=== PATIENT | female | born 1980 | race Hispanic/Latino ===

== ENCOUNTER 2021-04-20 12:53 | Emergency (ER) | payer OTHER, SELFPAY ==
--- NOTE | ~2021-04-20 | XR_ITS ---
EXAMINATION: XR knee RT min 4V DATE: 04/20/2021 13:14 INDICATION: Right knee pain TECHNIQUE: Four views of the right knee were obtained. COMPARISON: 04/25/2019 FINDINGS: Alignment is normal. No fracture or osteochondral lesion. Joint spaces are normal with no e rosions. There is a moderate size knee joint effusion. Soft tissues are unremarkable. IMPRESSION: 1. Moderate size knee joint effusion without acute osseous abnormality. Reviewed, dictated and finalized at location A.
[2021-04-20 12:54] VITALS: BP 126/68; PULSE 110; RESP 20; TEMP 37.2; O2SAT 99
[2021-04-20] MEDS: KETOROLAC (*BKC) 60 MG/2 ML VIAL IM (14:36)
--- NOTE | 2021-04-20 14:51 | ED.GENADULT ---
HPI - General Adult General Chief complaint: Extremity Injury, Lower Stated complaint: right knee pain Time Seen by Provider: 04/20/21 13:46 Source: patient, RN notes reviewed and old records reviewed Mode of arrival: ambulatory Limitations: no limitations History of Present Illness HPI narrative: Patient is a 40-year-old female who presents with tender right knee noting that she woke with swollen right knee noted as an aching pain patient denies injury or trauma has had problems with this knee in the past was seen by orthopedist had x-rays and MRI which did not reveal a cause patient on arrival to emergency department does not appear distressed presents with knee immobilizer patient is takes ibuprofen for pain nothing else patient on arrival is noted does not appear uncomfortable or distressed Related Data Home Medications Medication Instructions Recorded Confirmed docosahexaenoic acid 200 mg capsule mg PO 12/19/19 fenugreek seed extract 500 mg mg PO 12/19/19 capsule multivitamin with iron 1 tablet PO DAILY 12/19/19 Allergies Allergy/AdvReac Type Severity Reaction Status Date / Time soybean Allergy Mild rash Verified 04/20/21 12:54 gluten Allergy Unknown Other Verified 04/20/21 12:54 house dust Allergy Unknown Other Verified 04/20/21 12:54 pollen extracts Allergy Unknown Unknown Verified 04/20/21 12:54 cat hair Allergy Unknown Rash Uncoded 12/19/19 10:05 Review of Systems Review of Systems: All systems reviewed & are unremarkable except as noted in HPI and below PMFSH Past Medical History Medical History Celiac disease Polycystic ovarian syndrome Surgical History Surgical History H/O hernia repair History of section Family History Family History (Updated 04/25/19 @ 09:40 by DOCTOR UNKNOWN) Other Asthma Cerebrovascular accident Diabetes mellitus Family history of allergic disorder Family history of arthritis Family history of kidney disease Hypertension Social History Social History Smoking status: Never smoker Alcohol intake: never Gender identity (if verbalized by the patient): Female Exam Narrative: Exam Narrative: GENERAL: Well-appearing, well-nourished, and in no acute distress. HEAD: Normocephalic, atraumatic. EYES: PERRLA and EOMI. ENT: Nares clear, no rhinorrhea or epistaxis. Mucous membranes moist. EXTREMITIES: Swelling tenderness of the right knee no deformity SKIN: Warm, dry, no rash. NEURO: No focal deficits. Alert and oriented x3. Neurovascularly intact PSYCH: Normal mood and affect. Course Course Emergency Course: Patient with knee effusion will be referred back to her orthopedist given Simeon wrap crutches advised to continue with the knee brace provided with reasons to return Vital Signs Vital signs: Vital Signs Temperature 98.9 F 04/20/21 12:54 Pulse Rate 110 H 04/20/21 12:54 Respiratory Rate 20 04/20/21 12:54 Blood Pressure 126/68 04/20/21 12:54 Pulse Oximetry 99 04/20/21 12:54 Temperature 98.9 F 04/20/21 12:54 Pulse Rate 110 H 04/20/21 12:54 Respiratory Rate 20 04/20/21 12:54 Blood Pressure 126/68 04/20/21 12:54 Pulse Oximetry 99 04/20/21 12:54 Medical Decision Making MDM Narrative Medical decision making narrative: Patients injury or pain is consistent with musculoskeletal etiology. No signs of neurological or vascular compromise on exam. Compartments and tisues are soft without signs of compartment syndrome. Pain is felt appropriate for further evaluation on an outpatient basis. Vital Signs Vital Signs: Vital Signs Temperature 98.9 F 04/20/21 12:54 Pulse Rate 110 H 04/20/21 12:54 Respiratory Rate 20 04/20/21 12:54 Blood Pressure 126/68 04/20/21 12:54 Pulse Oximetry 99 04/20/21 12:54 Temperature 98.9 F
== END 2021-04-20 15:13 | disposition home or self-care (01) ==
PROVIDERS: Emergency Provider Emergency Medicine; PCP Emergency Medicine
DX: M25.461 Effusion, right knee (principal)
CPT/HCPCS: 73564; 96372; 99283; J1885

== ENCOUNTER 2021-04-25 08:50 | Outpatient (CLI) | payer OTHER, SELFPAY ==
[2021-04-25 09:49] LABS: Basophils Percent Auto 0.5 % (0.2-1.2); Eosinophils Absolute Auto 0.1 K/mm3 (0-0.3); Eosinophils Percent Auto 1.8 % (0-4.4); Hematocrit 39.3 % (37.0-47.0); Hemoglobin 12.7 g/dL (12.0-15.0); Immature Granulocyte Absolute 0.02 K/mm3 (0.00-0.031); Immature Granulocyte Percent A 0.3 % (0-0.5); Lymphocytes Absolute Auto 2.18 K/mm3 (0.9-3.2); Lymphocytes Percent Auto 33.1 % (18.3-44.2); Mean Corpuscular HGB Conc 32.3 g/dl (32-36); Mean Corpuscular Hemoglobin 29.3 pg (26-34); Mean Corpuscular Volume 90.8 fl (80-100); Monocytes Absolute Auto 0.4 K/mm3 (0.1-0.6); Monocytes Percent Auto 6.5 % (2.6-8.5); Neutrophils Absolute Auto 3.8 K/mm3 (1.3-6.7); Neutrophils Percent Auto 57.8 % (45.5-73.1); Platelet Count Result 387 k/mm3 (150-375); Red Blood Count 4.33 M/mm3 (4.2-5.4); Red Cell Distribution Width 12.4 % (11.5-14.5); White Blood Count 6.6 K/mm3 (4.5-10.0)
[2021-04-25 10:06] LABS: Rheumatoid Factor < 8.6 IU/ML (<12)
[2021-04-25 10:09] LABS: CRP 1.6 mg/dL (<1.0); Uric Acid 4.7 mg/dL (2.5-7.5)
[2021-04-25 11:00] LABS: Erythrocyte Sedimentation Rate 74 mm/hr (0-20)
== END 2021-04-25 08:51 | disposition home or self-care (01) ==
PROVIDERS: PCP Emergency Medicine; Visit Provider Orthopaedic Surgery
DX: M17.0 Bilateral primary osteoarthritis of knee (principal); M06.9 Rheumatoid arthritis, unspecified
CPT/HCPCS: 36415; 84550; 85025; 85652; 86038; 86140; 86430

== ENCOUNTER 2024-05-18 18:57 | Emergency (ER) | payer OTHER, SELFPAY ==
[2024-05-18 19:12] VITALS: BP 112/62; PULSE 93; RESP 16; TEMP 36.7; O2SAT 98
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
== END 2024-05-18 19:39 | disposition home or self-care (01) ==
PROVIDERS: Emergency Provider Nurse Practitioner; PCP Student in an Organized Health Care Education/Training Program
DX: S46.811A Strain of other muscles, fascia and tendons at shoulder and upper arm level, right arm, initial encounter (principal); V49.40XA Driver injured in collision with unspecified motor vehicles in traffic accident, initial encounter; R51.9 Headache, unspecified; K90.0 Celiac disease; E28.2 Polycystic ovarian syndrome
CPT/HCPCS: 99213; G0463